=== PATIENT | female | born 1990 | race Caucasian/White ===

== ENCOUNTER 2016-07-26 08:03 | Emergency (ER) | payer SELFPAY ==
--- NOTE | 2016-07-26 10:25 | UC ---
Complaint Female HPI - HPI Summary HPI Summary: 25 y/o female presents to the urgent care c/o of vaginal discharge with an odor and a burning sensation when she urinates since this morning. Pt is concerned of being . Pt states frequency on urination and denies fever , N/V/D, headache or SOB, pelvic pain. LMP 06/30/2016 with regular menstrual cycles. She has Hx of abnormal PAP and is screened every 6 months. Next appt with BI[employer]EDICAL ENGINEERING AIDE is in 1 month. - History Of Current Complaint Chief Complaint: UCGU Stated Complaint: Vaginal COMPLAINT Time Seen by Provider: 07/26/16 09:27 Hx Obtained From: Patient Hx Last Menstrual Period: 06/30/16 (but short) ?: No Onset/Duration: Sudden Onset, Lasting Hours, Still Present Timing: Constant Severity Initially: Mild Severity Currently: Mild Pain Intensity: 0 Pain Scale Used: 0-10 Numeric Character: Burning Aggravating Factor(s): Urination Associated Signs And Symptoms: Positive: Vaginal Discharge, Genital Swelling. Negative: Fever, Back Pain, Nausea, Vomiting(# Of Episodes =), Genital Blisters - Risk Factors Ectopic Risk Factor: Negative Ovarian Torsion Risk Factor: Negative - Allergies/Home Medications Allergies/Adverse Reactions: Allergies Allergy/AdvReac Type Severity Reaction Status Date / Time Risperidone [From Risperdal] Allergy Severe FACIAL PAIN Verified 07/26/16 08:09 Home Medications: Home Medications Citalopram TAB* [Celexa TAB*] 10 mg PO DAILY 07/26/16 [History Confirmed ] QUEtiapine TAB* [Seroquel TAB*] 25 mg PO BEDTIME 07/26/16 [History Confirmed 11/03] PMH/Surg Hx/FS Hx/Imm Hx Previously Healthy: Yes Psychological History: Bipolar Disorder - Surgical History Surgical History: None - Family History Known Family History: Positive: Diabetes - Social History Occupation: Employed Full-time Lives: With Family Alcohol Use: None Substance Use Type: None Smoking Status (MU): Never Smoked Tobacco Household Exposure Type: Cigarettes - Immunization History Most Recent Influenza Vaccination: no Review of Systems Constitutional: Negative Skin: Negative Eyes: Negative ENT: Negative Respiratory: Negative Cardiovascular: Negative Gastrointestinal: Negative Genitourinary: Frequency - on urination with burning sensation Neurovascular: Negative Musculoskeletal: Negative Neurological: Negative Psychological: Negative All Other Systems Reviewed And Are Negative: Yes Physical Exam Triage Information Reviewed: Yes Vital Signs: Initial Vital Signs Temp 98.9 F 07/26/16 08:05 Pulse 84 07/26/16 08:05 Resp 16 07/26/16 08:05 BP 110/62 07/26/16 08:05 Pulse Ox 98 07/26/16 08:05 - Additional Comments PHYSICAL EXAMINATION: Vital signs reviewed General: Normotensive, in no acute distress. Head: Normocephalic, no lesions. Eyes: PERRLA, EOM's full, conjunctivae clear, Ears: EAC's clear, TM's normal. Nose: Mucosa normal, no obstruction. Throat: Clear, no exudates, no lesions. Neck: Supple, no masses, no thyromegaly, no bruits. Chest: Lungs clear, no rales, no rhonchi, no wheezes. Heart: RR, no murmurs, no rubs, no gallops. Abdomen: Soft, no tenderness, no masses, BS normal. : Normal, no lesions, no discharge, no hernias noted. Pelvic: I was assisted by the Nurse Annimiek. External genitalia has mild erythema in the labia majora. There is no lesions there is no masses noted. Speculum exam: The vaginal malagon are within normal limits w/ white vaginal discharge with a fishy odor, no lesions or rashes noted. The cervix is closed with erythema around the os. There is no CMT's, and no adnexal masses. Sample sent to lab for G/C and affirm w/ trichomonas. Rectal: No lesions, no hemorrhoids, Back: Normal curvature, no tenderness. Extremities: FROM, no deformities, no edema, no erythema. Neuro: Physiological, no localizing findings. Skin: Normal, no rashes, no lesions noted. Complaint Female Dx - Course Course Of Treatment: Vaginal discharge with burning urination: Hx obtained. UA and UA test ordered: Results UA: negative, UA : negative. Abnormal Pelvic PE findings:Pelvic: I was assisted by the Nurse Annimiek. External genitalia has mild erythema in the labia majora. There is no lesions there is no masses noted. Speculum exam: The vaginal malagon are within normal limits w/ white vaginal discharge with a fishy odor, no lesions or rashes noted. The cervix is closed with erythema around the os. There is no CMT's, and no adnexal masses. Sample sent to lab for G/C and affirm w/ trichomonas. Pt Rx Metronidazole 0.75% vaginal appli x 5 day. And advised if anything else appear abnormal in specimen sent to lab will receive a call back from us. Pt educated in BV and strongly advised to f/u with BIOMEDICAL ENGINEERING AIDE for further treatment on abnomal PAP. Pt understood and agreed. - Differential Dx/Diagnosis Differential Diagnosis/HQI/PQRI: Cervicitis, Pelvic Inflammatory Disease, , Sexually Transmitted Disease, Urinary Tract Infection Provider Diagnoses: Bacterial Vaginosis, Discharge - Discharge Plan Condition: Stable Disposition: HOME Prescriptions: metroNIDAZOLE VAGINAL 0.75%* 1 applic VAGINAL BEDTIME #1 tube Patient Education Materials: Bacterial Vaginosis (ED) Forms: *Work Release Referrals: NONI Westfall [Primary Care Provider] - Additional Instructions: Please apply vaginal antibiotic as instructed. If any other abnormal results are obtained from the specimens collected, you will receive a call to return to the urgent care for further treatment. Please keep your appt with the BIOMEDICAL ENGINEERING AIDE to f/ u for your abnormal PAP.
[2016-07-26 10:35] VITALS: BP 105/67
--- NOTE | 2016-07-28 17:18 | UC ---
Progress - Progress Note Progress Note: Pt had burning on urination. Was started on cephalexin. Urine cult is neg. Should stop cephalexin. If still with sxs, needs definite follow up with PCP or urgent care.
== END 2016-07-26 10:52 | disposition home or self-care (01) ==
LOC: UCEAST 08:03
DX: N76.0 Acute vaginitis (principal); R30.0 Dysuria; F31.9 Bipolar disorder, unspecified; Z77.22 Contact with and (suspected) exposure to environmental tobacco smoke (acute) (chronic); Z32.02 Encounter for pregnancy test, result negative
CPT/HCPCS: 81003; 84702; 87086; 87480; 87491; 87510; 87591; 87661; 99212; G0463

== ENCOUNTER 2016-11-18 12:49 | Emergency (ER) | payer SELFPAY ==
--- NOTE | 2016-11-18 13:38 | UC ---
Complaint Female HPI - HPI Summary HPI Summary: 26 YEAR OLD FEMALE PRESENTS WITH COMPLAINS BILATERAL LEG PAIN AND CONCERNS OF BEING . - History Of Current Complaint Stated Complaint: PERSONAL/RIGHT LEG PAIN Time Seen by Provider: 11/18/16 13:37 Hx Obtained From: Patient Hx Last Menstrual Period: 06/30/16 (but short) Onset/Duration: Sudden Onset Timing: Constant Severity Initially: Moderate Severity Currently: Moderate Pain Scale Used: 0-10 Numeric - 5 Character: Sharp Aggravating Factor(s): Movement Alleviating Factor(s): Position - Allergies/Home Medications Allergies/Adverse Reactions: Allergies Allergy/AdvReac Type Severity Reaction Status Date / Time Risperidone [From Risperdal] Allergy Severe FACIAL PAIN Verified 11/18/16 14:06 PMH/Surg Hx/FS Hx/Imm Hx Previously Healthy: Yes - Surgical History Surgical History: None - Family History Known Family History: Positive: Unknown, Diabetes - Social History Alcohol Use: None Substance Use Type: None Smoking Status (MU): Never Smoked Tobacco Household Exposure Type: Cigarettes - Immunization History Most Recent Influenza Vaccination: no Review of Systems Constitutional: Negative Skin: Negative Eyes: Negative ENT: Negative Respiratory: Negative Cardiovascular: Negative Gastrointestinal: Negative Genitourinary: Negative Motor: Negative Neurovascular: Negative Musculoskeletal: Myalgia, Other: - BILATERAL LEG CRAMPS Neurological: Negative Psychological: Negative All Other Systems Reviewed And Are Negative: Yes Physical Exam Triage Information Reviewed: Yes Eye Exam: Normal ENT Exam: Normal Dental Exam: Normal Neck exam: Normal Neck: Positive: 1 Respiratory Exam: Normal Cardiovascular Exam: Normal Abdominal Exam: Normal Musculoskeletal Exam: Normal Neurological Exam: Normal Psychological Exam: Normal Skin Exam: Normal Complaint Female Dx - Differential Dx/Diagnosis Provider Diagnoses: BILATERAL LEG CRAMPS Discharge - Discharge Plan Condition: Stable Disposition: HOME Prescriptions: Nitrofurantoin Monohyd Macro [Macrobid] 100 mg PO BID #14 cap Patient Education Materials: Urinary Tract Infection in Women (ED), Leg Pain ( ED) Forms: *Work Release Referrals: NONI Westfall [Primary Care Provider] -
[2016-11-18 14:06] VITALS: BP 114/77
== END 2016-11-18 14:50 | disposition home or self-care (01) ==
LOC: UCCORT 12:49
DX: G47.62 Sleep related leg cramps (principal); F17.210 Nicotine dependence, cigarettes, uncomplicated
CPT/HCPCS: 87077; 87086; 87186; 99212; G0463

== ENCOUNTER 2017-02-04 19:08 | Emergency (ER) | payer SELFPAY ==
[2017-02-04 20:07] VITALS: BP 126/74
--- NOTE | 2017-02-04 20:07 | UC ---
Abdominal Pain Female HPI - HPI Summary HPI Summary: 26 year old female presents with severe rlq pain. - History of Current Complaint Stated Complaint: RLQ PAIN Time Seen by Provider: 02/04/17 20:07 Hx Obtained From: Patient Hx Last Menstrual Period: 06/30/16 (but short) Onset/Duration: Sudden Onset Severity Initially: Moderate Severity Currently: Moderate Pain Scale Used: 0-10 Numeric - 8 Location: Discrete At: RLQ Radiates: No Allergies/Adverse Reactions: Allergies Allergy/AdvReac Type Severity Reaction Status Date / Time Risperidone [From Risperdal] Allergy Severe FACIAL PAIN Verified 11/18/16 14:06 PMH/Surg Hx/FS Hx/Imm Hx Previously Healthy: Yes - Surgical History Surgical History: None - Family History Known Family History: Positive: Unknown, Diabetes - Social History Alcohol Use: None Substance Use Type: None Smoking Status (MU): Never Smoked Tobacco Household Exposure Type: Cigarettes - Immunization History Most Recent Influenza Vaccination: no Review of Systems Constitutional: Negative Skin: Negative Eyes: Negative ENT: Negative Respiratory: Negative Cardiovascular: Negative Gastrointestinal: Abdominal Pain - rlq Genitourinary: Negative Motor: Negative Neurovascular: Negative Musculoskeletal: Negative Neurological: Negative Psychological: Negative All Other Systems Reviewed And Are Negative: Yes Physical Exam Triage Information Reviewed: Yes Vital Signs Reviewed: Yes Eye Exam: Normal ENT Exam: Normal Dental Exam: Normal Neck exam: Normal Neck: Positive: 1 Respiratory Exam: Normal Cardiovascular Exam: Normal Abdominal Exam: Normal Abdomen Description: Positive: Other: - rlq pain Musculoskeletal Exam: Normal Neurological Exam: Normal Psychological Exam: Normal Skin Exam: Normal Abd Pain Female Course/Dx - Differential Dx/Diagnosis Provider Diagnoses: rlq pain Discharge - Discharge Plan Condition: Stable Disposition: OTHER Discharge Disposition Comment: patient suggested to go to the er Patient Education Materials: Acute Abdominal Pain (ED) Referrals: NONI Westfall [[facility], [facility], OTHER] - Additional Instructions: patient referred to go to the er
== END 2017-02-04 20:59 ==
LOC: UCCORT 19:08
DX: R10.31 Right lower quadrant pain (principal); Z87.891 Personal history of nicotine dependence
CPT/HCPCS: 99212; G0463

== ENCOUNTER 2017-11-20 19:58 | Emergency (ER) | payer OTHER ==
[2017-11-20 20:46] VITALS: BP 110/60
--- NOTE | 2017-11-20 21:42 | UC ---
Throat Pain/Nasal Cj HPI - HPI Summary HPI Summary: 15 weeks gestational age. One day history of congestion malaise and ear pressure without fever, shortness of breath, cough. - History of Current Complaint Chief Complaint: UCGeneralIllness Stated Complaint: SORE THROAT,COUGH,UPPER RESPIRATORY Time Seen by Provider: 11/20/17 21:29 Hx Obtained From: Patient Hx Last Menstrual Period: 06/30/16 (but short) ?: Yes - hep C positive Onset/Duration: Gradual Onset, Lasting Days - 1 Pain Intensity: 5 Associated Signs & Symptoms: Positive: Dysphagia, Hoarseness, Nasal Discharge - Epiglottits Risk Factors Epiglottis Risk Factors: Negative - Allergies/Home Medications Allergies/Adverse Reactions: Allergies Allergy/AdvReac Type Severity Reaction Status Date / Time benztropine [From Cogentin] Allergy Agitation Verified 11/20/17 20:35 risperidone Allergy Facial Pain Verified 11/20/17 20:33 Home Medications: Home Medications Lurasidone(*) [Latuda] 40 mg PO DAILY 11/20/17 [History Confirmed 11/20/17] hydrOXYzine HCL TAB* [Atarax 10 MG TAB*] 10 mg PO SEE INSTRUCTIONS 11/20/17 [ History Confirmed 11/20/17] hydrOXYzine HCl [Hydroxyzine HCl] 50 mg PO BEDTIME 11/20/17 [History Confirmed 11/20/17] PMH/Surg Hx/FS Hx/Imm Hx Previously Healthy: No - hepatitis C Psychological History: Anxiety - Surgical History Surgical History: None - Family History Known Family History: Positive: Diabetes - Social History Occupation: Employed Full-time Lives: With Family Alcohol Use: None Substance Use Type: None Smoking Status (MU): Current Every Day Smoker Type: Cigarettes Amount Used/How Often: 1/2 ppd Length of Time of Smoking/Using Tobacco: 9 mos. Household Exposure Type: Cigarettes - Immunization History Most Recent Influenza Vaccination: no Review of Systems Constitutional: Fatigue Skin: Negative Eyes: Negative ENT: Sore Throat, Ear Ache, Nasal Discharge Respiratory: Negative Cardiovascular: Negative Gastrointestinal: Negative Genitourinary: Negative Motor: Negative Neurovascular: Negative Musculoskeletal: Negative Neurological: Negative Psychological: Anxious Is Patient Immunocompromised?: No All Other Systems Reviewed And Are Negative: Yes Physical Exam Triage Information Reviewed: Yes Appearance: Ill-Appearing - congested and looks unwell Vital Signs: Initial Vital Signs Temp 98.3 F 10/04/18 20:40 Pulse 85 11/20/17 20:40 Resp 22 11/20/17 20:40 BP 110/60 11/20/17 20:40 Pulse Ox 98 11/20/17 20:40 Eyes: Positive: Conjunctiva Clear ENT: Positive: Pharyngeal erythema. Negative: Tonsillar swelling, Tonsillar exudate Neck: Positive: Supple, Nontender, No Lymphadenopathy Respiratory: Positive: Lungs clear, Normal breath sounds Cardiovascular: Positive: RRR, No Murmur Psychological Exam: Other - mildly depressed mood and affect. Skin Exam: Normal Throat Pain/Nasal Course/Dx - Course Course Of Treatment: symptomatic treatment. - Differential Dx/Diagnosis Provider Diagnoses: viral URI Discharge - Sign-Out/Discharge Documenting (check all that apply): Patient Departure All imaging exams completed and their final reports reviewed: No Studies - Discharge Plan Condition: Stable Disposition: HOME Patient Education Materials: Upper Respiratory Infection (ED) Forms: *Work Release Referrals: Megan Negro MD [Primary Care Provider] - Additional Instructions: Continue symptomatic treatment, including use of acetaminophen for sore throat. Ensure rest and fluids. - Billing Disposition and Condition Condition: STABLE Disposition: Home
== END 2017-11-20 21:53 | disposition home or self-care (01) ==
LOC: UCCORT 19:58
DX: O99.332 Smoking (tobacco) complicating pregnancy, second trimester (principal); O99.512 Diseases of the respiratory system complicating pregnancy, second trimester; Z3A.15 15 weeks gestation of pregnancy; Z88.8 Allergy status to other drugs, medicaments and biological substances
CPT/HCPCS: 99211; G0463